=== PATIENT | female | born 1965 | race Native Hawaiian/Other Pacific Islander ===

== ENCOUNTER 2017-04-28 11:16 | Day surgery (SDC) | payer MEDICAID ==
[2017-04-28 12:07] VITALS: O2SAT 100
[2017-04-28 12:09] VITALS: BMI 22.4
[2017-04-28] MEDS ORDERED: Lidocaine 1% Inj (20ml) ONE (14:25)
--- NOTE | 2017-04-28 14:32 | CP.SDSHP ---
Same Day Surgery H & P - History Proposed Procedure: US guided FNA of thyroid nodule. Pre-Op Diagnosis: thyroid nodule. - Allergies Allergies: Allergies No Known Allergies Allergy (Verified 02/17/15 18:30) - Physical Exam Vital Signs: Vital Signs 04/28/17 12:06 Temperature 97.6 F Pulse Rate 77 Respiratory 18 Rate Blood Pressure 115/74 O2 Sat by Pulse 100 Oximetry - Impression Impression: Pt with a 1.6 cm left thyroid nodule. Plan US guided FNA of thyroid nodule. Pt. Evaluated Today:Candidate for Anesthesia & Procedure: No - Date & Time Date: 04/28/17 Time: 14:15 Short Stay Discharge - Short Stay Discharge Admitting Diagnosis/Reason for Visit: E04.1 Referrals: Claudine Jain MD [Primary Care Provider] -
--- NOTE | 2017-04-28 14:34 | PCM.SURG1 ---
Surgeon's Initial Post Op Note - Surgeon's Notes Surgeon: Austin Rivera MD Lusterer: NONE Type of Anesthesia: Local Pre-Operative Diagnosis: thyroid nodule. Operative Findings: Mixed solid and cystic 1.6 cm left thyroid nodule Post-Operative Diagnosis: thyroid nodule. Operation Performed: US guided FNA of thyroid nodule. Specimen/Specimens Removed: 25 g FNA x 4 passes Estimated Blood Loss: EBL {In ML}: 0 Blood Products Given: N/A Drains Used: No Drains Post-Op Condition: Good Date of Surgery/Procedure: 04/28/17 Time of Surgery/Procedure: 14:30
[2017-04-28 14:52] VITALS: BP 118/74; PULSE 58; RESP 18; TEMP 98.7
--- NOTE | 2017-04-29 14:33 | US ---
PROCEDURE: Date of Procedure: 04/28/2017 PROCEDURE: 1. Ultrasound guided FNA of left thyroid nodule, CPT 36621 2. Ultrasound guidance for FNA, 28645 Medications: 3cc 1% Lidocaine HISTORY: Enlarged left thyroid nodule. TECHNIQUE: Following informed consent and procedure time-out, a limited ultrasound patient's neck confirmed the presence of a 1.5 cm complex left thyroid nodule which is predominantly solid. After the patient's neck was prepped and draped in the usual sterile fashion, the skin was anesthetized with 1% lidocaine. Ultrasound-guided fine needle aspiration was then performed of the dominant left thyroid nodule. A total of 4 passes were made into the nodule with 25 gauge needle under ultrasound guidance. The FNA specimen was sent for routine pathology. Post biopsy ultrasound showed no hematoma. IMPRESSION: Ultrasound-guided FNA of the dominant left thyroid nodule.
== END 2017-04-28 15:15 | disposition home or self-care (01) ==
LOC: H.OPSURG 11:16
PROVIDERS: ATTEND Otolaryngology Otolaryngology/Facial Plastic Surgery
DX: E04.1 Nontoxic single thyroid nodule (principal)